=== PATIENT | male | born 1935 | race Caucasian/White ===

== ENCOUNTER 2017-07-21 11:42 | Inpatient (IN) | payer MEDICARE, MEDICAID, OTHER ==
[2017-07-21] VITALS (8 sets, daily range): BP systolic 84–95; BP diastolic 47–65
[~2017-07-21] VITALS: Ht 177.8 cm; Wt 67.3 kg
[~2017-07-21 11:42] MED LIST: DIGO250T77 PO; GEMF600T3 PO; LISI10TA4 PO; METF500T4 PO; METO50TA16 PO; NORepinephrine 1 mg/ml inj IV ONE; WARF-65 PO; WARF3TAB56 PO
[2017-07-21] MEDS ORDERED: furosemide 10 MG/1 ML 10ml inj IV ONE (12:00)
[2017-07-21] MEDS ORDERED: nitroGLYCERIN 0.4mg SUBLingual tab SL PRN (12:00)
[2017-07-21] MEDS ORDERED: morphine 4 MG/ML inj SYRINge IV ONE (12:05)
[2017-07-21] MEDS ORDERED: normal saline 500ml IV soln 1,000 ML IV ONE (12:20)
[2017-07-21 12:24] LABS: BASOPHILS % (AUTO) 0.2 % (0-1); EOSINOPHILS # (AUTO) 0.1 X10'3 (0-0.9); EOSINOPHILS % (AUTO) 1.9 % (0-6); HEMATOCRIT 29.1 % (42.0-52.0); HEMOGLOBIN 9.9 g/dl (14.0-17.9); LYMPHOCYTES # (AUTO) 0.7 X10'3 (1.1-4.8); LYMPHOCYTES % (AUTO) 19.5 % (21-51); MEAN CORPUSCULAR HEMOGLOBIN 35.5 PG (27.0-31.0); MEAN CORPUSCULAR HGB CONC 33.8 % (33.0-36.5); MEAN CORPUSCULAR VOLUME 104.9 FL (78-98); MEAN PLATELET VOLUME 8.8 FL (7.4-10.4); MONOCYTES # (AUTO) 0.2 X10'3 (0-0.9); MONOCYTES % (AUTO) 6.6 % (2-12); NEUTROPHILS # (AUTO) 2.7 X10'3 (1.8-7.7); NEUTROPHILS % (AUTO) 71.8 % (42-75); PLATELET COUNT 201 X10'3 (140-440); RED BLOOD COUNT 2.78 X10'6 (4.70-6.10); RED CELL DISTRIBUTION WIDTH 16.4 % (11.5-14.5); WHITE BLOOD COUNT 3.7 X10'3 (4.5-11.0)
[2017-07-21] MEDS ORDERED: normal saline 1000ml 1,000 ML IV ONE ×2 (12:30→15:10)
[2017-07-21 12:33] LABS: INR 1.1 INR; PROTHROMBIN TIME 11.6 SECONDS (9.0-12.0)
[2017-07-21] MEDS ORDERED: dextrose 50%-water 50ml dispensing syringe IV ONE (12:35)
[2017-07-21 12:56] LABS: ALANINE AMINOTRANSFERASE 8 U/L (12-78); ALBUMIN/GLOBULIN RATIO 0.6 (1.1-1.5); ALKALINE PHOSPHATASE 70 IU/L (46-116); ANION GAP 11 (8-16); ASPARTATE AMINO TRANSFERASE 15 U/L (10-37); BILIRUBIN,TOTAL 0.3 MG/DL (0.1-1.0); BLOOD UREA NITROGEN 86 MG/DL (7-18); BUN/CREATININE RATIO 27.8 (5.4-32.0); CALCIUM 9.1 MG/DL (8.5-10.1); CHLORIDE 107 MMOL/L (99-107); CREATININE 3.09 MG/DL (0.60-1.10); GLUCOSE 98 MG/DL (70-104); SODIUM 139 MMOL/L (135-145); TOTAL PROTEIN 8.2 G/DL (6.4-8.2); eGFR 20 ML/MIN
[2017-07-21 12:58] LABS: POTASSIUM 7.1 MMOL/L (3.5-5.1)
[2017-07-21] MEDS ORDERED: albuterol 2.5 MG/3 ML nebule NEB ONE (13:05)
[2017-07-21] MEDS ORDERED: sodium polystyrene sulfonate 15gm/60ml oral suspension PO ONE (13:05)
[2017-07-21] MEDS ORDERED: insulin regular, human 10 units/0.1 ml syringe IV ONE (13:05)
[2017-07-21] MEDS ORDERED: azithromycin/NS 500mg/250ml 250 ML IV ONE (13:15)
[2017-07-21] MEDS ORDERED: CefTRIAXone 2gm/D5W 50ml 50 ML IV ONE (13:15)
[2017-07-21] MEDS: DOBUTamine-DoBUTrex 500mg/D5W 250 ML IV SCH ×2 (13:25→23:39)
[2017-07-21] MEDS ORDERED: HYDROmorphone 1 mg/ml syringe IV PRN (13:55)
[2017-07-21] MEDS ORDERED: vancomycin/NS 1 GM ADD-VANTAGE 250 ML IV ONE ×2 (13:55→18:35)
[2017-07-21] MEDS ORDERED: ondansetron/PF 4mg/2ml inj IV PRN (13:55)
[2017-07-21] MEDS ORDERED: ipratropium/albuterol 3ml nebule NEB PRN (13:55)
[2017-07-21] MEDS ORDERED: furosemide 20 MG/2 ML vial IV ONE (14:00)
[2017-07-21] MEDS ORDERED: DOBUTamine-DoBUTrex 500mg/D5W 250 ML IV SCH (14:00)
[2017-07-21] MEDS ORDERED: cefepime 1GM/NS ADD-VANTAGE 100 ML IV SCH (14:00)
[2017-07-21 14:25] LABS: AMYLASE 34 U/L (25-115); LIPASE 118 U/L (73-393)
[2017-07-21] MEDS ORDERED: DIGOXIN IMMUNE FAB IV ONE (14:40)
[2017-07-21] MEDS ORDERED: NORMAL SALINE IV ONE (14:40)
[2017-07-21] MEDS ORDERED: METO25TA6 PO (14:53)
[2017-07-21] MEDS ORDERED: GEMF600T3 PO (14:53)
[2017-07-21] MEDS ORDERED: FERR325T28 PO (14:53)
[2017-07-21] MEDS ORDERED: APIX5TAB3 PO (14:53)
[2017-07-21] MEDS ORDERED: PANT-47 PO (14:53)
[2017-07-21] MEDS ORDERED: FLO0.4C PO (14:53)
[2017-07-21] MEDS: sodium bicarbonate (8.4%) inj. 150 MEQ in dextrose 5%-water 1,000 ML IV SCH (15:01)
[2017-07-21] MEDS ORDERED: albumin (Human) 5% 250 ML IV solution IV STA (15:07)
[2017-07-21] MEDS: NORepinephrine 8mg/ 250ml NS 250 ML IV PRN ×2 (15:21→22:09)
[2017-07-21] MEDS ORDERED: HYDROmorphone inj. 0.5 MG/0.5 ML DISP.SYRIN IV PRN (15:53)
[2017-07-21] MEDS: cefepime inj. 1 GM in dextrose 5%-water 50ml 50 ML IV SCH (17:12)
[2017-07-21 19:05] LABS: ANION GAP 12 (8-16); BLOOD UREA NITROGEN 79 MG/DL (7-18); BUN/CREATININE RATIO 26.6 (5.4-32.0); CALCIUM 8.3 MG/DL (8.5-10.1); CHLORIDE 111 MMOL/L (99-107); CREATININE 2.97 MG/DL (0.60-1.10); GLUCOSE 143 MG/DL (70-104); PHOSPHORUS 4.6 MG/DL (2.3-4.5); POTASSIUM 5.7 MMOL/L (3.5-5.1); SODIUM 143 MMOL/L (135-145); TOTAL CARBON DIOXIDE 20.3 MMOL/L (24-32); eGFR 20 ML/MIN
[2017-07-21 20:25] LABS: OXYGEN SATURATION (MIXED VEN) 82.7 % (60-80); PO2 MIXED VENOUS (TEMP COR) 49.9 mmHg (35-46)
[2017-07-21] MEDS: heparin, porcine 5000 units/ml vial SQ SCH (21:47)
[2017-07-21] MEDS: famotidine/PF 10 mg/ml inj IV SCH (21:59)
[2017-07-22] VITALS (24 sets, daily range): BP systolic 70–126; BP diastolic 37–97
[2017-07-22] MEDS: DOBUTamine-DoBUTrex 500mg/D5W 250 ML IV SCH ×2 (01:45→17:48)
[2017-07-22] MEDS: VANCOMYCIN LEVEL IV SCH (03:00)
[2017-07-22 03:23] LABS: CLARITY,URINE CLOUDY (Clear); COLOR,URINE YELLOW (Yellow); GLUCOSE, URINE NEGATIVE (Neg); KETONES,URINE TRACE mg/dl (Neg); LEUKOCYTE ESTERASE ,URINE MODERATE (Neg); NITRITES, URINE NEGATIVE (Neg); OCCULT BLOOD,URINE TRACE-LYSED (Neg); PROTEIN,URINE 100 mg/dl (Neg); UROBILINOGEN,URINE 0.2 E.U/dL (0.2-1.0)
[2017-07-22 03:26] LABS: BASOPHILS % (AUTO) 0.3 % (0-1); EOSINOPHILS % (AUTO) 0 % (0-6); HEMATOCRIT 24.4 % (42.0-52.0); HEMOGLOBIN 8.1 g/dl (14.0-17.9); LYMPHOCYTES # (AUTO) 0.3 X10'3 (1.1-4.8); LYMPHOCYTES % (AUTO) 5.1 % (21-51); MEAN CORPUSCULAR HEMOGLOBIN 35.7 PG (27.0-31.0); MEAN CORPUSCULAR VOLUME 107.9 FL (78-98); MEAN PLATELET VOLUME 9.1 FL (7.4-10.4); MONOCYTES # (AUTO) 0.3 X10'3 (0-0.9); MONOCYTES % (AUTO) 4.7 % (2-12); NEUTROPHILS # (AUTO) 5.6 X10'3 (1.8-7.7); NEUTROPHILS % (AUTO) 89.9 % (42-75); PLATELET COUNT 172 X10'3 (140-440); RED BLOOD COUNT 2.26 X10'6 (4.70-6.10); RED CELL DISTRIBUTION WIDTH 16.4 % (11.5-14.5); WHITE BLOOD COUNT 6.3 X10'3 (4.5-11.0)
[2017-07-22] MEDS: NORepinephrine 8mg/ 250ml NS 250 ML IV PRN ×3 (03:33→17:49)
[2017-07-22 03:35] LABS: URINE AMPHETAMINE SCREEN NEGATIVE (Neg); URINE BARBITUATE SCREEN NEGATIVE (Neg); URINE BENZODIAZEPINES SCREEN NEGATIVE (Neg); URINE CANNABINOID SCREEN NEGATIVE (Neg); URINE COCAINE SCREEN NEGATIVE (Neg); URINE METHADONE SCREEN NEGATIVE (Neg); URINE OPIATE SCREEN NEGATIVE (Neg); URINE PHENCYCLIDINE SCREEN NEGATIVE (Neg)
[2017-07-22 03:44] LABS: ALANINE AMINOTRANSFERASE 7 U/L (12-78); ALBUMIN 2.8 G/DL (3.4-5.0); ALBUMIN/GLOBULIN RATIO 0.7 (1.1-1.5); ALKALINE PHOSPHATASE 51 IU/L (46-116); ANION GAP 10 (8-16); ASPARTATE AMINO TRANSFERASE 10 U/L (10-37); BILIRUBIN,TOTAL 0.3 MG/DL (0.1-1.0); BLOOD UREA NITROGEN 74 MG/DL (7-18); BUN/CREATININE RATIO 26.1 (5.4-32.0); CHLORIDE 111 MMOL/L (99-107); CREATININE 2.84 MG/DL (0.60-1.10); GLUCOSE 166 MG/DL (70-104); MAGNESIUM 2.2 MG/DL (1.5-2.4); PHOSPHORUS 5.3 MG/DL (2.3-4.5); POTASSIUM 5.5 MMOL/L (3.5-5.1); SODIUM 143 MMOL/L (135-145); TOTAL CARBON DIOXIDE 21.7 MMOL/L (24-32); TOTAL PROTEIN 6.9 G/DL (6.4-8.2); TROPONIN I 0.05 NG/ML (0.0-0.05); VANCOMYCIN,RANDOM 9.9 UG/ML; eGFR 22 ML/MIN
[2017-07-22 03:46] LABS: UA COLLECTION TYPE FOLEY CATH
[2017-07-22 03:48] LABS: BACTERIA,URINE 4+ /HPF (Neg); SQUAMOUS EPITHELIAL CELL,UR NONE SEEN /LPF (FEW); TRANSITIONAL EPI CELLS,URINE FEW /HPF; WBC,URINE TNTC /HPF (0-4)
[2017-07-22] MEDS ORDERED: vancomycin/NS 1 GM ADD-VANTAGE 250 ML IV PRN (06:00)
[2017-07-22] MEDS: cefepime inj. 1 GM in dextrose 5%-water 50ml 50 ML IV SCH (08:43)
[2017-07-22] MEDS: heparin, porcine 5000 units/ml vial SQ SCH ×2 (08:43→20:31)
[2017-07-22] MEDS ORDERED: LISI40TA4 PO (09:02)
[2017-07-22] MEDS ORDERED: METF500T4 (09:04)
[2017-07-22] MEDS ORDERED: COU1T PO ×2 (09:05→09:07)
[2017-07-22] MEDS ORDERED: pneumococcal 23-VAL P-sac vacc 25 mcg/0.5ml vial IMVAC ONE (10:00)
[2017-07-22] MEDS ORDERED: vancomycin/NS 1 GM ADD-VANTAGE 250 ML IV ONE (10:00)
[2017-07-22] MEDS: famotidine/PF 10 mg/ml inj IV SCH ×2 (10:04→20:31)
[2017-07-22] MEDS ORDERED: VANCOMYCIN 750MG IV in NS 250 ML IV ONE (12:00)
[2017-07-22] MEDS: sodium bicarbonate (8.4%) inj. 150 MEQ in dextrose 5%-water 1,000 ML IV SCH (12:38)
[2017-07-22] MEDS: lactobacillus rhamnosus 10,000 MMU CELLS/CAPSULE PO SCH (20:30)
[2017-07-23] VITALS (17 sets, daily range): BP systolic 53–154; BP diastolic 44–82
[2017-07-23] MEDS: NORepinephrine 8mg/ 250ml NS 250 ML IV PRN ×3 (00:31→07:23)
[2017-07-23] MEDS ORDERED: furosemide 40mg/4ml inj ONE (01:53)
[2017-07-23] MEDS ORDERED: furosemide 40mg/4ml inj IV ONE (01:55)
[2017-07-23] MEDS ORDERED: insulin regular, human 10 units/0.1 ml syringe IV ONE (01:55)
[2017-07-23] MEDS ORDERED: dextrose 50%-water 50ml dispensing syringe IV ONE (01:55)
[2017-07-23] MEDS ORDERED: vancomycin/NS 1 GM ADD-VANTAGE 250 ML IV SCH (02:00)
[2017-07-23 02:06] LABS: ABG BASE EXCESS -8.2 mmol/L (-2.0-3.0); ABG HCO3 22.5 mmol/L (22.0-26.0); ABG PCO2 (T) 79.5 mmHg (35.0-48.0); ABG PH (T) 7.069 (7.350-7.450); ABG PO2 (T) 86.1 mmHg (83-108); ALLEN'S TEST Positive; FCOHb 0.2 % (0.5-1.5); FMetHb 0.3 % (0.3-1.12); FO2Hb 93.5 % (94-100); MINUTE VOLUME 3 L/min; PEEP 5 cm H2O; RESPIRATORY RATE 18 b/min; RESPIRATORY RATE (OBSERVED) 21 b/min; TIDAL VOLUME 225 mL; TOTAL HEMOGLOBIN 9.6 G/dl (14.0-18.0)
[2017-07-23 02:07] LABS: BASOPHILS # (AUTO) 0.1 X10'3 (0-0.2); EOSINOPHILS % (AUTO) 0.5 % (0-6); HEMATOCRIT 26.8 % (42.0-52.0); HEMOGLOBIN 8.8 g/dl (14.0-17.9); LYMPHOCYTES # (AUTO) 1.4 X10'3 (1.1-4.8); MEAN CORPUSCULAR HEMOGLOBIN 34.9 PG (27.0-31.0); MEAN CORPUSCULAR HGB CONC 32.7 % (33.0-36.5); MEAN CORPUSCULAR VOLUME 106.7 FL (78-98); MEAN PLATELET VOLUME 8.7 FL (7.4-10.4); MONOCYTES # (AUTO) 0.2 X10'3 (0-0.9); MONOCYTES % (AUTO) 3.8 % (2-12); NEUTROPHILS # (AUTO) 4.7 X10'3 (1.8-7.7); NEUTROPHILS % (AUTO) 72.7 % (42-75); PLATELET COUNT 187 X10'3 (140-440); RED BLOOD COUNT 2.51 X10'6 (4.70-6.10); RED CELL DISTRIBUTION WIDTH 15.2 % (11.5-14.5); WHITE BLOOD COUNT 6.4 X10'3 (4.5-11.0)
[2017-07-23 02:15] LABS: OXYGEN SATURATION (MIXED VEN) 76.5 % (60-80); PO2 MIXED VENOUS (TEMP COR) 48.4 mmHg (35-46)
[2017-07-23] MEDS ORDERED: heparin 10,000 units/1 ML INJ IV PRN (02:15)
[2017-07-23] MEDS ORDERED: heparin 10,000 units/1 ML INJ IV ONE (02:15)
[2017-07-23 02:23] LABS: ALANINE AMINOTRANSFERASE 13 U/L (12-78); ALBUMIN 2.8 G/DL (3.4-5.0); ALBUMIN/GLOBULIN RATIO 0.7 (1.1-1.5); ALKALINE PHOSPHATASE 64 IU/L (46-116); ANION GAP 8 (8-16); ASPARTATE AMINO TRANSFERASE 26 U/L (10-37); BILIRUBIN,TOTAL 0.2 MG/DL (0.1-1.0); BLOOD UREA NITROGEN 69 MG/DL (7-18); BUN/CREATININE RATIO 24.6 (5.4-32.0); CALCIUM 9.9 MG/DL (8.5-10.1); CHLORIDE 111 MMOL/L (99-107); CREATININE 2.81 MG/DL (0.60-1.10); PHOSPHORUS 5.5 MG/DL (2.3-4.5); POTASSIUM 3.8 MMOL/L (3.5-5.1); SODIUM 149 MMOL/L (135-145); TOTAL CARBON DIOXIDE 29.9 MMOL/L (24-32); TOTAL PROTEIN 6.9 G/DL (6.4-8.2); eGFR 22 ML/MIN
[2017-07-23] MEDS ORDERED: vasoPRESSIN 20 units/ml inj. ONE ×2 (02:25→02:27)
[2017-07-23] MEDS ORDERED: vasopressin inj. 60 UNIT in normal saline 100ml IV soln 97 ML IV SCH (02:25)
[2017-07-23] MEDS ORDERED: CISatracurium besylate inj. 200 MG in normal saline 250ml IV soln 180 ML IV PRN (02:26)
[2017-07-23 02:27] LABS: GLUCOSE 167 MG/DL (70-104); VANCOMYCIN,RANDOM 15.2 UG/ML
[2017-07-23 02:29] LABS: TROPONIN I 0.18 NG/ML (0.0-0.05)
[2017-07-23] MEDS ORDERED: CISatracurium **Bolus** 2 mg/ml inj IV PRN (02:30)
[2017-07-23] MEDS ORDERED: midazolam 100mg in NS 100ml 100 ML IV PRN (02:52)
[2017-07-23] MEDS ORDERED: FENTANYL-0.9 % NACL/PF 100 ML IV PRN (02:52)
[2017-07-23 02:53] LABS: INR 1.1 INR; PARTIAL THROMBOPLASTIN TIME 25 SECONDS (22-32); PROTHROMBIN TIME 11.3 SECONDS (9.0-12.0)
[2017-07-23 02:54] LABS: CREATINE KINASE 150 U/L (39-308)
[2017-07-23] MEDS ORDERED: fentaNYL/PF 50MCG/1 ML 2ML syringe IV PRN (02:55)
[2017-07-23] MEDS ORDERED: midazolam 2 mg/2 ml injection IV ONE (02:55)
[2017-07-23] MEDS: VANCOMYCIN LEVEL IV SCH (03:00)
[2017-07-23 03:01] LABS: ABG OXYGEN SATURATION 93.9 % (95-98); ABG PCO2 (T) 75.9 mmHg (35.0-48.0); ABG PH (T) 7.112 (7.350-7.450); ABG PO2 (T) 76.2 mmHg (83-108); ALLEN'S TEST Positive; FCOHb 0.6 % (0.5-1.5); FMetHb 0.3 % (0.3-1.12); FO2Hb 93.1 % (94-100); MINUTE VOLUME 7 L/min; PATIENT TEMPERATURE 36.1; PEEP 5 cm H2O; RESPIRATORY RATE 22 b/min; RESPIRATORY RATE (OBSERVED) 24 b/min; TIDAL VOLUME 290 mL; TOTAL HEMOGLOBIN 8.8 G/dl (14.0-18.0)
[2017-07-23] MEDS ORDERED: ipratropium/albuterol 3ml nebule NEB SCH (03:10)
[2017-07-23] MEDS ORDERED: mineral oil/petrolatum ophthal oint OP SCH (04:00)
[2017-07-23] MEDS: sodium bicarbonate (8.4%) inj. 150 MEQ in dextrose 5%-water 1,000 ML IV SCH (04:20)
[2017-07-23 04:36] LABS: ABG BASE EXCESS -8.2 mmol/L (-2.0-3.0); ABG HCO3 19.4 mmol/L (22.0-26.0); ABG OXYGEN SATURATION 95.6 % (95-98); ABG PCO2 (T) 45.6 mmHg (35.0-48.0); ABG PH (T) 7.235 (7.350-7.450); ABG PO2 (T) 78.7 mmHg (83-108); ALLEN'S TEST Positive; FCOHb 0.3 % (0.5-1.5); FMetHb 0.3 % (0.3-1.12); MINUTE VOLUME 8 L/min; PEEP 5 cm H2O; RESPIRATORY RATE 22 b/min; RESPIRATORY RATE (OBSERVED) 22 b/min; TIDAL VOLUME 371 mL
[2017-07-23] MEDS: DOBUTamine-DoBUTrex 500mg/D5W 250 ML IV SCH (06:57)
[2017-07-23] MEDS ORDERED: mineral oil/petrolatum ophthal oint EACHEYE SCH (08:00)
[2017-07-23] MEDS ORDERED: pantoprazole 40 MG vial IV SCH (08:00)
[2017-07-23] MEDS: lactobacillus rhamnosus 10,000 MMU CELLS/CAPSULE PO SCH (08:10)
[2017-07-23] MEDS: famotidine/PF 10 mg/ml inj IV SCH (08:10)
[2017-07-23] MEDS: heparin, porcine 5000 units/ml vial SQ SCH (08:13)
[2017-07-23] MEDS: cefepime inj. 1 GM in dextrose 5%-water 50ml 50 ML IV SCH (08:13)
[2017-07-23 09:12] LABS: CHOL/HDL RATIO 3.2 (0.00-4.99); CHOLESTEROL 95 MG/DL (0-200); HDL CHOLESTEROL 30 MG/DL (35-60); LDL CHOLESTEROL 46 MG/DL (50-100); TRIGLYCERIDES 89 MG/DL (20-135)
[2017-07-23] MEDS ORDERED: enoxaparin 30mg/0.3ml syringe SQ SCH (11:40)
[2017-07-23] MEDS ORDERED: enoxaparin 40mg/0.4ml syringe SQ SCH (11:40)
[2017-07-23] MEDS ORDERED: bisacodyl 10mg suppository rectal RC PRN (13:55)
[2017-07-23] MEDS ORDERED: polyethylene glycol 3350 17gm powd pack PO PRN (13:55)
[2017-07-23] MEDS ORDERED: LORazepam 2 mg/ml vial IV PRN (15:20)
[2017-07-23] MEDS ORDERED: morphine 4 MG/ML inj SYRINge IV PRN (15:20)
[2017-07-23] MEDS ORDERED: gemfibrozil 600mg tablet PO SCH (20:00)
== END 2017-07-23 16:29 | disposition expired | DRG 208 ==
LOC: ER 11:43 → ED HOLD 13:51 → CICU 2S 15:39
PROVIDERS: ADMIT Internal Medicine Critical Care Medicine; ATTEND Internal Medicine Critical Care Medicine
PROC: 02HV33Z Insertion of Infusion Device into Superior Vena Cava, Percutaneous Approach (ICD-10-PCS; 2017-07-21)
PROC: B548ZZA Ultrasonography of Superior Vena Cava, Guidance (ICD-10-PCS; 2017-07-21)
PROC: 5A1935Z Respiratory Ventilation, Less than 24 Consecutive Hours (ICD-10-PCS; principal; 2017-07-23)
PROC: 0BH18EZ Insertion of Endotracheal Airway into Trachea, Via Natural or Artificial Opening Endoscopic (ICD-10-PCS; 2017-07-23)
PROC: 5A12012 Performance of Cardiac Output, Single, Manual (ICD-10-PCS; 2017-07-23)
DX: J18.1 Lobar pneumonia, unspecified organism (principal); J96.00 Acute respiratory failure, unspecified whether with hypoxia or hypercapnia; I50.33 Acute on chronic diastolic (congestive) heart failure; E87.2 Acidosis; I95.9 Hypotension, unspecified; E11.22 Type 2 diabetes mellitus with diabetic chronic kidney disease; E87.5 Hyperkalemia; N17.9 Acute kidney failure, unspecified; N18.4 Chronic kidney disease, stage 4 (severe); I13.0 Hypertensive heart and chronic kidney disease with heart failure and stage 1 through stage 4 chronic kidney disease, or unspecified chronic kidney disease; I48.2 Chronic atrial fibrillation; J44.0 Chronic obstructive pulmonary disease with (acute) lower respiratory infection; I46.9 Cardiac arrest, cause unspecified; D64.9 Anemia, unspecified; E78.5 Hyperlipidemia, unspecified; G89.29 Other chronic pain; R62.7 Adult failure to thrive; T46.0X5A Adverse effect of cardiac-stimulant glycosides and drugs of similar action, initial encounter; F17.210 Nicotine dependence, cigarettes, uncomplicated; Z51.5 Encounter for palliative care; Z66 Do not resuscitate; Z88.5 Allergy status to narcotic agent; Z88.6 Allergy status to analgesic agent; Z79.899 Other long term (current) drug therapy; Z79.01 Long term (current) use of anticoagulants; Z82.49 Family history of ischemic heart disease and other diseases of the circulatory system; Z23 Encounter for immunization
CPT/HCPCS: 36415; 36600; 71045; 80053; 80061; 80069; 80162; 80202; 80305; 81001; 82150; 82330; 82550; 82803; 82810; 82948; 83605; 83690; 83735; 83880; 84100; 84145; 84484; 85018; 85025; 85610; 85730; 86885; 86900; 86901; 87070; 93005; 93306; 93308; 94002; 94003; 94640; 94760; A6213; A6253; A6449; C1751; C1758; C9113; J0456; J0692; J0696; J1162; J1250; J1644; J1815; J1940; J2250; J2405; J3370; J3490; J7030; J7060; P9045